=== PATIENT | female | born 1955 | race Caucasian/White ===

== ENCOUNTER 2018-06-28 12:37 | Inpatient (IN) | payer OTHER ==
[2018-06-28] MEDS ORDERED: Ondansetron PF 4 MG/2 ML Vial ONE (13:25)
[2018-06-28] MEDS ORDERED: Morphine 4 MG/ML VIAL ONE ×2 (13:25→14:22)
--- NOTE | 2018-06-28 13:58 | RAD ---
RIGHT ANKLE 3 VIEWS: Date: 06/28/18 HISTORY: Injury. COMPARISON: None. FINDINGS: There is lateral talar shift. There is a transversely oriented medial malleolar fracture. There is a comminuted and segmental distal fibular fracture extending above the below the syndesmosis. Posterior malleolar fracture is also present. IMPRESSION: 1. Pronation and external rotation Stage IV injury with lateral talar shift, transversely oriented m edial malleolar fracture, comminuted segmental fracture of the distal fibula, as well as a coronally oriented fracture of the posterior malleolus. 2. Concern for possible mid foot injury. Foot radiographs recommended. POS: [facility]
[2018-06-28] MEDS ORDERED: CEFAZOLIN 2 GM in Premix Bag 1 BAG IVPB SCH (14:45)
[2018-06-28] MEDS ORDERED: PHENYLEPHRINE-NS 100 MCG/ML 10 ML SYRINGE ONE (14:49)
[2018-06-28] MEDS ORDERED: PROPOFOL 200 MG/20 ML VIAL ONE (14:49)
[2018-06-28] MEDS ORDERED: Lidocaine 1% PF 5 ML VIAL ONE (14:49)
[2018-06-28] MEDS ORDERED: Dexamethasone 20 MG/5 ML VIAL ONE (14:49)
[2018-06-28] MEDS ORDERED: Metoclopramide HCl 10 MG/2 ML VIAL ONE (14:49)
--- NOTE | 2018-06-28 15:01 | RAD ---
RIGHT ANKLE TWO VIEWS: HISTORY: Post reduction. FINDINGS: There has been reduction of a trimalleolar fracture. Bony alignment between the tibia and talus is n ow much improved, still with lateral displacement of the fractured distal component of the medial mal leolus, in relation to the tibia. Overall, fairly satisfactory alignment. IMPRESSION: Reduction of trimalleolar fracture. POS: [facility]
--- NOTE | 2018-06-28 15:13 | HP ---
CONSULTATIONS: Orthopedics, Dr. Byrd. HISTORY OF PRESENT ILLNESS: The patient is a 63-year-old woman, who was reportedly leaving a restaurant when she tripped and fell rolling her right ankle. The patient was brought by EMS to the emergency department, where she underwent evaluation and examination, and was noted to have a right bimalleolar fracture. Initially, the patient was going to be discharged home, but due to pain and distance to travel, she asked to be admitted to the hospital and have her surgery first thing in the morning at which time, we were asked to evaluate the patient for admission and obtain Orthopedic consultation. The patient denied any loss of consciousness or syncopal symptoms prior to her fall. ALLERGIES: NONE. CURRENT MEDICATION: 1. Estradiol. 2. Citalopram. 3. Simvastatin. 4. Flexeril. 5. Meloxicam. 6. Topiramate. 7. Alprazolam. PAST MEDICAL HISTORY: Hyperlipidemia, arthritis, migraines, hypertension, and anxiety. PAST SURGICAL HISTORY: Tubal ligation and hysterectomy. SOCIAL HISTORY: The patient lives independently at home. Ambulates without assistance device. Denies drug, tobacco, or alcohol use. REVIEW OF SYSTEMS: Ten-point review of systems is negative as otherwise stated. PHYSICAL EXAMINATION: VITAL SIGNS: Blood pressure 169/66, heart rate 100, respirations 17, oxygen saturation is 95% on room air, and temperature is 98.7. GENERAL: The patient is resting comfortably in bed. She is awake, alert, and oriented x3. [place] Coma Scale is 15. HEENT: Head is normocephalic, atraumatic. Eyes, extraocular motion intact. PERRLA bilaterally. Ears are atraumatic without discharge. Nose, atraumatic without discharge. Oropharynx is clear. NECK: Nontender. Trachea is midline. No JVD. CHEST: Clear to auscultation with good inspiratory and expiratory effort. HEART: Regular rate and rhythm. ABDOMEN: Soft, flat, nontender with active bowel sounds. PELVIS: Stable. EXTREMITIES: Right lower extremity is mobilized in a L and U splint. All extremities are neurovascularly intact x4. BACK: By report is atraumatic and nontender. LABORATORY DATA: Labs are pending at this time. RADIOGRAPHS: Three views of the right ankle show a bimalleolar ankle fracture. ASSESSMENT: 1. Status post ground level fall. 2. Bimalleolar right ankle fracture. 3. Pain secondary to trauma. 4. History of hypertension. PLAN: Plan will be to admit the patient to the surgical floor. Pain management, pulmonary toilet, gastritis, and mechanical VTE prophylaxis. The patient will be made n.p.o. after midnight in preparation for Orthopedic surgery tomorrow. The patient was evaluated by [facility] for Orthopedics. Her evaluation, examination, laboratory, and radiographic findings were discussed with Dr. Silverman after this dictation. Job ID: [id number]
[2018-06-28] MEDS ORDERED: hydrALAZINE 20 MG/ML VIAL SLOW IVP PRN (15:22)
[2018-06-28] MEDS ORDERED: traMADol HCl 50 MG TAB PO PRN (15:22)
[2018-06-28] MEDS ORDERED: Dextrose 5% in Water 1,000 ML IV PRN (15:22)
[2018-06-28] MEDS ORDERED: Dextrose 50% Abboject 50 ML SYRINGE SLOW IVP PRN (15:22)
[2018-06-28] MEDS ORDERED: Ondansetron PF 4 MG/2 ML Vial IVP PRN (15:22)
[2018-06-28] MEDS ORDERED: Morphine 4 MG/ML VIAL SLOW IVP PRN (15:22)
[2018-06-28] MEDS ORDERED: Ondansetron ODT 4 MG TAB PO PRN (15:22)
--- NOTE | 2018-06-28 16:24 | CON ---
DATE OF CONSULTATION: HISTORY OF PRESENT ILLNESS: We were asked by Trauma in the emergency room to see the patient. The patient was in her normal state of health until she tripped earlier today, unfortunately sustaining a right ankle fracture. No loss of consciousness, but in quite a bit of pain. ER staff has currently just finished splinting her. She did not tolerate this overtly well. Medications being given to help with her pain. No other injury sustained in the fall. is at bedside. PAST MEDICAL HISTORY: Positive for arthritis, migraines, and hyperlipidemia. PAST SURGICAL HISTORY: Hysterectomy, tubal ligation. PSYCHIATRIC HISTORY: Some anxiety. SOCIAL HISTORY: Lives at home. . No alcohol or nicotine or illicit drug use. ALLERGIES: NONE. MEDICATIONS: 1. Estradiol. 2. Citalopram. 3. Simvastatin. 4. Cyclobenzaprine. 5. Meloxicam. 6. Topiramate. 7. Alprazolam. FAMILY HISTORY: Noncontributory to this case, but both parents had cardiac issues. REVIEW OF SYSTEMS: Denies any chest pain or shortness of breath. No bowel or bladder problems currently. Main complaint is right ankle pain. Rest of review of systems discussed and are negative. PHYSICAL EXAMINATION: GENERAL: Well-nourished, mildly obese female, resting on the gurney in room 3 in the emergency room, currently being splinted, so in a fair amount of distress. Speech clear. Affect pleasant. Answers questions appropriately. Alert and oriented x3. Again, is at the bedside. HEENT: Normal exam. Face symmetric. Tongue midline. NECK: Supple. Trachea midline. RESPIRATORY: No distress. EXTREMITIES: Upper extremities; equal size, shape, symmetry. Normal bulk and tone. Lower extremity; right lower extremity is currently splinted, but she is able to wiggle her toes and has good sensations. Left lower extremity normal exam. IMAGING DATA: X-rays show bimalleolar fracture of the right ankle. ASSESSMENT: Right ankle fracture/bimalleolar. PLAN: She has been admitted by Trauma, worked up by the emergency room. We will get her set up for surgery tomorrow, get her consented some antibiotics. Keep her n.p.o. after midnight. Get her on the surgery schedule. This has been explained to the patient. Again, she has been admitted by the Trauma Service for a ground level ankle fracture. Pain medications per trauma also. Dr. Byrd has been informed of the patient. I will talk to her again in the morning and answer any questions that she may have or that arise. Job ID: [id number] MTDD
[2018-06-28] MEDS: traMADol HCl 50 MG TAB PO PRN (16:59)
[2018-06-28] MEDS: Acetaminophen 500 MG TAB PO SCH (16:59)
[2018-06-28 17:29] LABS: #Eosinphils 0.1 thou/uL (0.0-0.7); #Lymphocytes 0.9 thou/uL (1.20-3.40); #Monocytes 0.5 thou/uL (0.11-0.59); #Neutrophils 7.7 thou/uL (1.40-6.50); %Basophils 0.3 % (0.0-1.0); %Eosinophils 0.8 % (0.0-10.0); %Lymphocytes 9.9 % (21.0-51.0); %Monocytes 5.2 % (0.0-10.0); %Neutrophils 83.8 % (42.0-75.0); Hemoglobin 12.3 g/dL (12.0-16.0); Mean Corpuscular HGB CONC 33.5 g/dL (32.0-36.0); Mean Corpuscular Hemoglobin 32.3 pg (27.0-31.0); Mean Corpuscular Volume 96.6 fL (78.0-98.0); Mean Platelet Volume 7.6 fL (7.4-10.4); Platelet Count 246 thou/uL (130-400); RBC Distribution Width 13.3 % (11.5-14.5); Red Blood Cell (RBC) Count 3.79 mill/uL (4.20-5.40); White Blood Cell (WBC) Count 9.2 thou/uL (4.8-10.8)
[2018-06-28 18:16] LABS: Anion Gap 14 mmol/L (10-20); BUN (Urea Nitrogen) 12 mg/dL (9.8-20.1); Calc. Creatinine Clearance 0 mL/min (70-130); Calcium 9.4 mg/dL (7.8-10.44); Carbon Dioxide 26 mmol/L (23-31); Chloride 103 mmol/L (98-107); Estimated GFR-MDRD 73; Glucose 138 mg/dL (80-115); Magnesium 1.9 mg/dL (1.6-2.6); Phosphorus 2.7 mg/dL (2.3-4.7); Sodium 138 mmol/L (136-145)
[2018-06-28] MEDS: Famotidine 20 MG TAB PO SCH (21:20)
[2018-06-28] MEDS ORDERED: Ibuprofen 600 MG TAB PO SCH (22:00)
[2018-06-29] MEDS: Sodium Chloride 0.9% 1,000 ML IV SCH ×3 (00:30→15:59)
[2018-06-29] MEDS: Ketorolac Tromethamine 30 MG/ML VIAL IVP SCH ×3 (00:31→11:33)
[2018-06-29] MEDS: Acetaminophen 1,000 MG in Premix Bag 1 BAG IVPB SCH ×2 (00:33→06:01)
[2018-06-29] MEDS: Acetaminophen 500 MG TAB PO SCH ×3 (00:34→11:33)
[2018-06-29 05:57] LABS: #Basophils 0.1 thou/uL (0.0-0.2); #Eosinphils 0.2 thou/uL (0.0-0.7); #Lymphocytes 1.9 thou/uL (1.20-3.40); #Monocytes 0.6 thou/uL (0.11-0.59); #Neutrophils 3.7 thou/uL (1.40-6.50); %Basophils 0.9 % (0.0-1.0); %Eosinophils 2.4 % (0.0-10.0); %Lymphocytes 29.7 % (21.0-51.0); %Monocytes 9.4 % (0.0-10.0); %Neutrophils 57.7 % (42.0-75.0); Hemoglobin 11.4 g/dL (12.0-16.0); Mean Corpuscular HGB CONC 33.8 g/dL (32.0-36.0); Mean Corpuscular Hemoglobin 32.8 pg (27.0-31.0); Mean Corpuscular Volume 96.9 fL (78.0-98.0); Mean Platelet Volume 7.6 fL (7.4-10.4); Platelet Count 218 thou/uL (130-400); RBC Distribution Width 13.6 % (11.5-14.5); Red Blood Cell (RBC) Count 3.48 mill/uL (4.20-5.40); White Blood Cell (WBC) Count 6.4 thou/uL (4.8-10.8)
[2018-06-29 06:09] LABS: Anion Gap 11 mmol/L (10-20); BUN (Urea Nitrogen) 15 mg/dL (9.8-20.1); Calc. Creatinine Clearance 0 mL/min (70-130); Calcium 8.6 mg/dL (7.8-10.44); Carbon Dioxide 28 mmol/L (23-31); Chloride 103 mmol/L (98-107); Estimated GFR-MDRD 87; Glucose 90 mg/dL (80-115); Magnesium 1.7 mg/dL (1.6-2.6); Potassium 4.3 mmol/L (3.5-5.1); Sodium 138 mmol/L (136-145)
[2018-06-29 06:11] LABS: Phosphorus 3.3 mg/dL (2.3-4.7)
[2018-06-29] MEDS: Famotidine 20 MG TAB PO SCH (08:48)
[2018-06-29] MEDS: traMADol HCl 50 MG TAB PO PRN (08:53)
[2018-06-29] MEDS ORDERED: Fentanyl 100 MCG/2 ML VIAL ONE ×2 (11:58→13:54)
[2018-06-29] MEDS ORDERED: Midazolam HCl 2 mg/2 ml Vial ONE (11:58)
[2018-06-29] MEDS ORDERED: Dexamethasone 4 mg/ml Vial ONE (11:58)
--- NOTE | 2018-06-29 12:13 | PRG ---
DATE OF SERVICE: SUBJECTIVE: This is a 63-year-old woman, who stepped off a curb and tripped rolling her right ankle. The patient was brought to the emergency room and underwent evaluation, was noted to have a right bimalleolar fracture. The patient was admitted for pain control. The patient has been n.p.o. after midnight. The patient voices no complaints at this time. She just reports increased pain with any movement. The patient had no overnight events. OBJECTIVE: VITAL SIGNS: Temperature 97.6, pulse 79, respirations 18, SpO2 of 98% on room air, and blood pressure 129/68. GENERAL: The patient is resting comfortably in bed. Awake, alert, in no distress. GCS of 15. HEENT: Atraumatic and normocephalic. CHEST: Good inspiratory and expiratory effort. No respiratory distress. HEART: Regular rate and rhythm. ABDOMEN: Soft and nontender. EXTREMITIES: Right lower extremity is immobilized, in a splint. Neurovascularly intact x4. LABORATORY DATA: WBC 6.4, RBC 3.48, hemoglobin 11.4, hematocrit 33.7, and platelet 218. Sodium 138, potassium 4.3, chloride 103, CO2 of 28, BUN 15, creatinine 0.68, estimated GFR 87, glucose 90, calcium 8.6, phosphorus 3.3, and magnesium 1.7. DIAGNOSTICS: No diagnostics to review today. ASSESSMENT: 1. Status post ground level fall. 2. Bimalleolar right ankle fracture. 3. Pain secondary to acute trauma. 4. History of hypertension. PLAN: The patient is scheduled for the OR today at 1 o'clock. We will continue the patient's pain management and pulmonary toilet. The patient remains on mechanical and VTE prophylaxis. The patient may be able to be discharged home postop if she is able to participate well with physical therapy and her pain is controlled. The plan has been discussed with the ortho PA. Physical Therapy will consult and let us know if the patient is okay to be discharged home or not. The patient was examined with Dr. Silverman during morning rounds. Job ID: [id number] MTDD
[2018-06-29] MEDS ORDERED: Ropivacaine 0.2% HCl/PF (40 MG/20 ML VIAL) ONE (14:45)
[2018-06-29] MEDS ORDERED: Bupivacaine HCl 0.5%/Epinephrine 1:200,000/PF 30 ml Vial ONE (14:45)
--- NOTE | 2018-06-29 14:54 | RAD ---
RIGHT ANKLE THREE VIEWS: History: Intraoperative films. FINDINGS: These show open reduction internal fixation of bimalleolar fracture with plate and screws. Bony align ment appears satisfactory. IMPRESSION: Open reduction internal fixation of bimalleolar fracture. POS: [facility]
[2018-06-29] MEDS ORDERED: Ondansetron HCl/PF 4 MG/2 ML Vial IVP PRN (15:15)
[2018-06-29] MEDS ORDERED: Promethazine HCl 25 MG/ML VIAL IM PRN (15:15)
[2018-06-29] MEDS ORDERED: Promethazine HCl 25 MG/ML VIAL SLOW IVP PRN (15:15)
[2018-06-29 16:16] VITALS: BP 143/73; TEMP 97.9
--- NOTE | 2018-06-29 19:42 | DIS ---
DATE OF ADMISSION: 06/28/2018 DATE OF DISCHARGE: 06/29/2018 ADMITTING PHYSICIAN: Santy Silverman DO CONSULT: Orthopedic Surgery. PROCEDURES: 1. On 06/28/2018, ankle x-ray; impression, pronation and external rotation, stage IV injury with lateral patellar shift, transversely-oriented medial malleolar fracture, comminuted segmental fracture of the distal tibia as well as coronally-oriented fracture of the posterior malleolus with concern of possible midfoot injury. 2. On 06/29/2018, repair of right ankle fracture, bimalleolar by Dr. Byrd. PRIMARY DIAGNOSIS: Bimalleolar right ankle fracture. SECONDARY DIAGNOSIS: History of hypertension. DISCHARGE MEDICATIONS: 1. Tramadol 50 mg p.o. q.6 hours p.r.n. pain. 2. Tylenol 1000 mg p.o. q.6 hours. 3. Continue the patient's home Xanax 0.25 p.o. at bedtime. 4. Aspirin p.o. daily. 5. Lipitor 40 mg p.o. at bedtime. 6. Citalopram 40 mg p.o. at bedtime. 7. Flexeril 10 mg p.o. at bedtime. 8. Estrace 1 mg p.o. at bedtime. 9. Motrin 600 mg p.o. q.8 hours. 10. Nitroglycerin 0.3 mg p.r.n. 11. Topiramate 50 mg p.o. at bedtime. There were no discontinued medications. HISTORY OF PRESENT ILLNESS AND HOSPITAL COURSE: This is a 63-year-old female, who tripped and fell earlier right ankle. The patient was brought into the emergency room, where she was found to have a right bimalleolar fracture. Initially, the patient was going to be discharged home, but due to pain and distance travel, Trauma Services was asked to admit the patient and planned to have surgery first thing this morning. The patient had no loss of consciousness or syncopal symptoms prior to her fall. The patient had no overnight events, was placed n.p.o. for surgery. The patient's pain was well controlled overnight. Postop surgery, the patient's pain was well tolerated and she was able to participate with Physical Therapy using a walker. The patient was examined by Dr. Silverman earlier today during morning rounds. The patient and family reports that they feel the patient is safe to go home and does not wish to have any inpatient rehab or home health. Again, the patient states her pain is well controlled at this time and voices no concerns or complaints. The patient was examined at the day of discharge and was deemed stable for discharge home. The patient's vital signs were stable on the day of discharge and the exam was unremarkable including cardiopulmonary and GI exam. The patient was again deemed stable for discharge home. DISCHARGE INSTRUCTIONS: 1. Location: Home. 2. Diet: Regular diet. 3. Activity: Nonweightbearing right lower extremity. 4. Followup: Follow up with Dr. Silverman as needed. Follow up with Dr. Byrd in 10 to 14 days. Follow up with primary care physician as needed. Job ID: [id number]
--- NOTE | 2018-06-29 21:45 | OP ---
DATE OF PROCEDURE: 06/29/2018 PREOPERATIVE DIAGNOSIS: Right trimalleolar ankle fracture. POSTOPERATIVE DIAGNOSIS: Right trimalleolar ankle fracture. PROCEDURE PERFORMED: Open reduction and internal fixation, right trimalleolar ankle fracture. ANESTHESIA: General. DATA BASE ADMINISTRATOR: Vivian Meyer, and Tylor Montaño, MS-4. TOURNIQUET TIME: 66 minutes at 300 mmHg. IMPLANTS: Synthes small fragment locking plate with a 2.7-mm variable angle LCP lateral distal fibular plate, four-hole and combination of 2.7 mm locking screws, 2.7 mm cortex screws and 3.5 mm cortical screws with the addition of two 4.0 mm cancellous screws for the medial malleolus. COMPLICATIONS: None. DRAINS: None. SPECIMEN: None. OUTCOME: Near-anatomic alignment. INDICATIONS FOR PROCEDURE: The patient is a 63-year-old lady status post fall sustaining a twisting injury to her right ankle. Upon arrival at [facility], she was found to have a trimalleolar ankle fracture with a small posterior malleolar fragment. After discussion with the patient including risks and benefits, we have decided to proceed with open reduction and internal fixation to stabilize the fracture and promote healing and near-anatomic alignment. Informed consent has been obtained, I believe all questions answered. DESCRIPTION OF PROCEDURE: After the induction of general anesthesia, the patient was positioned supine on the OR table. Then, a sterile prep and drape was performed of the right lower extremity. It should be noted that a time-out was performed prior to anesthesia. Next, the limb was exsanguinated with Esmarch bandage, tourniquet inflated to 300 mmHg. A vertical incision was made over the lateral malleolus after the skin was sharply incised, dissection was carried down bluntly. The superficial peroneal nerve was identified and reflected anteriorly. Next, using minimal subperiosteal dissection, the fracture edges were all identified. The fracture hematoma was lavaged from the wound with sterile saline. Next, the fracture was reduced and held in place with a combination of bone tenaculum using K-wires. Once sufficiently held together provisionally, a four-hole 2.7 mm LCP distal lateral fibular plate was applied to the lateral cortex of the fibula and then held in place provisionally with a 3.5-mm screw proximal to the main fracture lines. Next, multiple 2.7 mm locking screws were placed distally and an additional 2.7 nonlocking screw and one additional 3.5 screw was placed proximally. Initial C-arm images were then obtained that showed evangelical of the mortise and anatomic alignment of the distal fibula. Next, a small vertical incision was made over the medial malleolus after the skin was sharply incised, dissection was carried down bluntly with identification of the saphenous vein and retraction. The fracture edges were then freed of fracture hematoma and periosteum and the fracture was reduced. Next, two 4.0 mm cancellous screw, partially threaded, were passed from the tip of the medial malleolus obliquely across the fracture into the distal tibial metaphysis, getting excellent compression across the fracture. Final AP, lateral, and mortise x-rays of the ankle were obtained that showed anatomic alignment of the fracture with reduction of the posterior malleolar fragment. Next, the wound was irrigated again with bulb syringe and then closed in layers with 0 Vicryl for fascia, 2-0 Vicryl subcutaneously and nylon, final skin closure. Xeroform gauze, Webril, and fiberglass splint were applied to the ankle and patient was transferred to the recovery room in stable condition. There were no complications. The patient tolerated the procedure well. Job ID: [id number]
[2018-06-29] MEDS ORDERED: CEFAZOLIN 2 GM in Premix Bag 1 BAG IVPB SCH (22:00)
[2018-06-29] MEDS ORDERED: Ibuprofen 600 MG TAB PO SCH (22:00)
== END 2018-06-29 18:35 | disposition home or self-care (01) | DRG 494 ==
LOC: ERS 12:37 → SURG A 13:54
PROVIDERS: ADMIT Surgery; ATTEND Surgery
PROC: 0QSJ04Z Reposition Right Fibula with Internal Fixation Device, Open Approach (ICD-10-PCS; principal; 2018-06-29)
PROC: 0QSG04Z Reposition Right Tibia with Internal Fixation Device, Open Approach (ICD-10-PCS; 2018-06-29)
DX: S82.851A Displaced trimalleolar fracture of right lower leg, initial encounter for closed fracture (principal); E78.5 Hyperlipidemia, unspecified; M19.90 Unspecified osteoarthritis, unspecified site; G43.909 Migraine, unspecified, not intractable, without status migrainosus; I10 Essential (primary) hypertension; F41.9 Anxiety disorder, unspecified; Z90.710 Acquired absence of both cervix and uterus; Z98.51 Tubal ligation status; W01.0XXA Fall on same level from slipping, tripping and stumbling without subsequent striking against object, initial encounter; Y92.511 Restaurant or cafe as the place of occurrence of the external cause
CPT/HCPCS: 29505; 36415; 76000; 80048; 83735; 84100; 85025; 93005; 96374; 96375; 96376; C1713; G0390; J0131; J0670; J1100; J1885; J2001; J2250; J2270; J2405; J2704; J2765; J2795; J3010

== ENCOUNTER 2018-11-08 10:37 | Outpatient (CLI) | payer OTHER ==
--- NOTE | 2018-11-08 13:04 | RAD ---
LUMBAR SPINE SERIES 4 VIEWS INCLUDING FLEXION AND EXTENSION: HISTORY: Low back pain. FINDINGS: Vertebral bodies are normal in height. There are degenerative facet changes noted. There is not a s ignificant degree of disk narrowing other than some minimal osteophytic change and disk narrowing at the L1-2 level, also some very minimal disk narrowing at L2-3. No spondylolisthesis is seen. I do n ot appreciate any significant abnormal motion in flexion or extension. Vascular calcifications are p resent. IMPRESSION: Minimal arthritic changes of the spine. POS: [facility]
== END 2018-11-08 10:38 | disposition home or self-care (01) ==
LOC: BICRAD 10:37
PROVIDERS: ATTEND Specialist
DX: M47.816 Spondylosis without myelopathy or radiculopathy, lumbar region (principal)
CPT/HCPCS: 72120

== ENCOUNTER 2020-08-06 10:23 | Outpatient (CLI) | payer BC, MEDICARE | END 2020-08-06 10:24 | disposition home or self-care (01) | LOC: BICMRI 10:23 | PROVIDERS: ATTEND Specialist | DX: M47.22 Other spondylosis with radiculopathy, cervical region (principal) | CPT/HCPCS: 72141 ==

== ENCOUNTER 2021-02-19 07:46 | Emergency (ER) | payer BC, MEDICARE ==
[2021-02-19] MEDS ORDERED: diphenhydrAMINE 50 MG/ML VIAL ONE (08:16)
[2021-02-19] MEDS ORDERED: Metoclopramide HCl 10 MG/2 ML VIAL ONE (08:16)
[2021-02-19 08:50] LABS: #Eosinphils 0.3 thou/uL (0.0-0.7); #Lymphocytes 2.5 thou/uL (1.20-3.40); #Monocytes 0.8 thou/uL (0.11-0.59); #Neutrophils 4.6 thou/uL (1.40-6.50); %Basophils 0.3 % (0.0-1.0); %Eosinophils 3.1 % (0.0-10.0); %Monocytes 10.1 % (0.0-10.0); %Neutrophils 56.5 % (42.0-75.0); Hemoglobin 12.2 g/dL (12.0-16.0); Mean Corpuscular HGB CONC 35.1 g/dL (32.0-36.0); Mean Corpuscular Hemoglobin 33.1 pg (27.0-31.0); Mean Corpuscular Volume 94.2 fL (78.0-98.0); Mean Platelet Volume 6.8 fL (7.4-10.4); Platelet Count 342 thou/uL (130-400); RBC Distribution Width 13.8 % (11.5-14.5); Red Blood Cell (RBC) Count 3.69 mill/uL (4.20-5.40); White Blood Cell (WBC) Count 8.2 thou/uL (4.8-10.8)
[2021-02-19 09:12] LABS: ALT (SGPT) 10 U/L (8-55); AST (SGOT) 11 U/L (5-34); Albumin 3.6 g/dL (3.4-4.8); Alkaline Phosphatase 88 U/L (40-110); Anion Gap 13 mmol/L (10-20); BUN (Urea Nitrogen) 22 mg/dL (9.8-20.1); Bilirubin, Total 0.5 mg/dL (0.2-1.2); Calc. Creatinine Clearance 0 mL/min (70-130); Calcium 9.1 mg/dL (7.8-10.44); Carbon Dioxide 31 mmol/L (23-31); Chloride 97 mmol/L (98-107); Globulin 3.5 g/dL (2.4-3.5); Glucose 80 mg/dL (80-115); Potassium 4.2 mmol/L (3.5-5.1); Protein, Total 7.1 g/dL (5.8-8.1); Sodium 137 mmol/L (136-145)
== END 2021-02-19 09:30 | disposition home or self-care (01) ==
LOC: ERS 07:46
DX: R51.9 Headache, unspecified (principal); E78.5 Hyperlipidemia, unspecified; Z79.899 Other long term (current) drug therapy
CPT/HCPCS: 80053; 85025; 96365; 96375; J1200; J2765

== ENCOUNTER 2021-02-25 10:04 | Outpatient (CLI) | payer BC, MEDICARE ==
[~2021-02-25 10:04] MED LIST: Magnevist 469MG/ML 20 ML VIAL ONE
== END 2021-02-25 10:05 | disposition home or self-care (01) ==
LOC: BICMRI 10:04
PROVIDERS: ATTEND Nurse Practitioner Acute Care
DX: G43.019 Migraine without aura, intractable, without status migrainosus (principal); J32.0 Chronic maxillary sinusitis; Q28.3 Other malformations of cerebral vessels
CPT/HCPCS: 70544; 70553; A9579

== ENCOUNTER 2021-11-05 09:30 | Outpatient (CLI) | payer BC, MEDICARE | END 2021-11-05 09:31 | disposition home or self-care (01) | LOC: BICRAD 09:30 | PROVIDERS: ATTEND Specialist | DX: M47.816 Spondylosis without myelopathy or radiculopathy, lumbar region (principal); M43.16 Spondylolisthesis, lumbar region | CPT/HCPCS: 72110 ==

== ENCOUNTER 2021-12-09 09:20 | Outpatient (CLI) | payer BC, MEDICARE | END 2021-12-09 09:21 | disposition home or self-care (01) | LOC: MRI 09:20 | PROVIDERS: ATTEND Specialist | DX: M87.9 Osteonecrosis, unspecified (principal); M25.559 Pain in unspecified hip; S76.212A Strain of adductor muscle, fascia and tendon of left thigh, initial encounter; S76.211A Strain of adductor muscle, fascia and tendon of right thigh, initial encounter; S76.311A Strain of muscle, fascia and tendon of the posterior muscle group at thigh level, right thigh, initial encounter; M25.48 Effusion, other site | CPT/HCPCS: 72195 ==

== ENCOUNTER 2022-05-28 11:41 | Outpatient (CLI) | payer BC, MEDICARE | END 2022-05-28 11:42 | disposition home or self-care (01) | LOC: CT 11:41 | PROVIDERS: ATTEND Family Medicine | DX: G43.019 Migraine without aura, intractable, without status migrainosus (principal) | CPT/HCPCS: 70450 ==

== ENCOUNTER 2022-07-08 09:13 | Outpatient (CLI) | payer BC, MEDICARE | END 2022-07-08 09:14 | disposition home or self-care (01) | LOC: MRI 09:13 | PROVIDERS: ATTEND Specialist | DX: M47.22 Other spondylosis with radiculopathy, cervical region (principal); M47.813 Spondylosis without myelopathy or radiculopathy, cervicothoracic region; M50.11 Cervical disc disorder with radiculopathy, high cervical region; M50.122 Cervical disc disorder at C5-C6 level with radiculopathy; M50.123 Cervical disc disorder at C6-C7 level with radiculopathy; M48.02 Spinal stenosis, cervical region; M25.78 Osteophyte, vertebrae | CPT/HCPCS: 72141 ==

== ENCOUNTER 2022-07-16 13:28 | Outpatient (CLI) | payer BC, MEDICARE | END 2022-07-16 13:29 | disposition home or self-care (01) | LOC: RAD 13:28 | PROVIDERS: ATTEND Specialist | DX: M47.22 Other spondylosis with radiculopathy, cervical region (principal) | CPT/HCPCS: 72050 ==

== ENCOUNTER 2022-11-11 12:35 | Outpatient (CLI) | payer BC, MEDICARE | END 2022-11-11 12:36 | disposition home or self-care (01) | LOC: RAD 12:35 | PROVIDERS: ATTEND Neurological Surgery | DX: M53.2X2 Spinal instabilities, cervical region (principal); M43.12 Spondylolisthesis, cervical region; M47.812 Spondylosis without myelopathy or radiculopathy, cervical region; Z98.1 Arthrodesis status | CPT/HCPCS: 72040 ==

== ENCOUNTER 2024-12-10 16:12 | Emergency (ER) | payer MEDICARE ==
[2024-12-10 17:45] LABS: #Basophils 0.05 10x3/uL (0.0-0.2); #Eosinophils 0.10 10x3/uL (0.0-0.7); #Monocytes 0.47 10x3/uL (0.11-0.59); #Neutrophils 7.27 10x3/uL (1.40-6.50); %Basophils 0.6 % (0.0-1.0); %Eosinophils 1.1 % (0.0-10.0); %Lymphocytes 9.7 % (21.0-51.0); %Monocytes 5.3 % (0.0-10.0); %Neutrophils 82.3 % (42.0-75.0); Hematocrit 32.2 % (36.0-47.0); Hemoglobin 10.5 g/dL (12.0-16.0); Mean Corpuscular Hemoglobin 30.8 pg (27.0-31.0); Mean Corpuscular Volume 94.4 fL (78.0-98.0); Platelet Count 193 10x3/uL (130-400); Red Blood Cell (RBC) Count 3.41 mill/uL (4.20-5.40); White Blood Cell (WBC) Count 8.84 10x3/uL (4.8-10.8)
[2024-12-10 18:06] LABS: ALT (SGPT) 11 U/L (Less than 34); AST (SGOT) 19 U/L (11-34); Albumin 4.0 g/dL (3.1-4.5); Alkaline Phosphatase 96 U/L (40-110); Anion Gap 17 mmol/L (10-20); BUN (Urea Nitrogen) 16 mg/dL (9.8-20.1); Bilirubin, Total 0.4 mg/dL (0.3-1.2); Calc. Creatinine Clearance 0 mL/min (70-130); Calcium 8.5 mg/dL (7.8-10.44); Carbon Dioxide 22 mmol/L (23-31); Chloride 108 mmol/L (98-107); Globulin 3.2 g/dL (2.4-3.5); Glucose 130 mg/dL (80-115); Potassium 4.4 mmol/L (3.5-5.1); Sodium 143 mmol/L (136-145)
== END 2024-12-10 22:23 ==
LOC: ERS 16:12
DX: S12.110A Anterior displaced Type II dens fracture, initial encounter for closed fracture (principal); E78.5 Hyperlipidemia, unspecified; W01.198A Fall on same level from slipping, tripping and stumbling with subsequent striking against other object, initial encounter; Y93.K9 Activity, other involving animal care; Z79.899 Other long term (current) drug therapy
CPT/HCPCS: 70450; 72125; 80053; 85025; 94760; J2270; 36415; 96374; 96376

== ENCOUNTER 2025-01-30 10:35 | Outpatient (CLI) | payer MEDICARE | END 2025-01-30 10:36 | disposition home or self-care (01) | LOC: BICRAD 10:35 | PROVIDERS: ATTEND Neurological Surgery | DX: S12.110A Anterior displaced Type II dens fracture, initial encounter for closed fracture (principal); Z98.1 Arthrodesis status | CPT/HCPCS: 72040 ==